=== PATIENT | female | born 1980 | race Caucasian/White ===

== ENCOUNTER 2018-02-01 20:12 | Emergency (ER) | payer MEDICAID ==
[~2018-02-01] VITALS: Ht 170.2 cm; Wt 105.2 kg
[2018-02-01 20:25] VITALS: Ht 170.2 cm; Wt 105.2 kg
[2018-02-02 01:50] VITALS: BP 155/55
== END 2018-02-02 02:02 | disposition home or self-care (01) ==
LOC: ED 20:12
DX: G43.809 Other migraine, not intractable, without status migrainosus (principal)
CPT/HCPCS: 20552; J1885; J2001; J2765